=== PATIENT | female | born 1955 | race Caucasian/White ===

== ENCOUNTER 2017-08-14 13:14 | Inpatient (IN) | payer OTHER ==
--- NOTE | 2017-08-14 13:58 | CPEKG ---
Heart Rate: 93 RR Interval: 645 P-R Interval: 164 QRSD Interval: 90 QT Interval: 364 QTC Interval: 453 P Allen: 51 QRS Allen: -11 T Wave Allen: 127 EKG Severity - ABNORMAL ECG - EKG Impression: SINUS RHYTHM EKG Impression: NONSPECIFIC T ABNORMALITIES, ANT-LAT LEADS Electronically Signed By: Jewel Mott 16-Aug-2017 16:46:10
[2017-08-14] MEDS ORDERED: NS 1,000 ML IV ONE (14:04)
[2017-08-14 14:13] LABS: % IMMATURE GRANULYOCYTES 0.5 % (0.0-1.1); ABSOLUTE IMMATURE GRANULOCYTES 0.09 10^3/uL (0.00-0.10); ADD DIFF? NO; ADD MORPH? NO; ADD SCAN? NO; ATYPICAL LYMPHOCYTE FLAG 0 (0-99); FRAGMENT RBC FLAG 0 (0-99); HEMATOCRIT 38.2 % (38.0-47.0); HEMOGLOBIN 13.1 g/dL (12.6-16.3); LEFT SHIFT FLG 0 (0-99); LIPEMIA HEMOLYSIS FLAG 90 (0-99); MEAN CELL HEMOGLOBIN 32.2 pg (27.9-34.1); MEAN CELL HEMOGLOBIN CONCENTR. 34.3 g/dL (32.4-36.7); MEAN CELL VOLUME 93.9 fL (81.5-99.8); MEAN PLATELET VOLUME 11.6 fL (8.7-11.7); PLATELET CLUMPS FLAG 0 (0-99); PLATELET COUNT 332 10^3/uL (150-400); RED BLOOD CELL COUNT 4.07 10^6/uL (4.18-5.33); RED CELL DISTRIBUTION WIDTH 13.3 % (11.5-15.2)
[2017-08-14 14:16] LABS: ANION GAP 15 mEq/L (8-16); CALCIUM 10.3 mg/dL (8.5-10.4); CARBON DIOXIDE 28 mEq/l (22-31); CHLORIDE 100 mEq/L (97-110); CREATININE 1.6 mg/dL (0.6-1.0); GLOMERULAR FILTRATION RATE 33; GLUCOSE 271 mg/dL (70-100); POTASSIUM 4.3 mEq/L (3.5-5.2); SODIUM 143 mEq/L (134-144)
[2017-08-14 14:27] LABS: TROPONIN I < 0.012 ng/mL (0.000-0.034)
--- NOTE | 2017-08-14 14:48 | EDPHY ---
HPI/HX/ROS/PE/MDM Narrative: CHIEF COMPLAINT: Fall, lethargy, dizziness HPI: This patient is a 61 year old female with history of diabetes arriving with her and daughter following a fall this morning. She has had chronic dizziness following heavy antibiotic treatment for a resistant e-coli urinary tract infection in February. She has had knee surgeries recently as well and has difficulty walking; she usually ambulates with a walked. This morning between 9: 30 and 11:00am, she became dizzy and fell. She was unable to get up following this. Her daughter found her at 11:00 and helped her up. She has been using a scopolamine patch to relieve her dizziness, which her daughter, a surgical center nurse, removed. The patient's daughter and agree that the patient has seemed fatigued and confused for the past several days. These symptoms are consistent with her prior urinary tract infections. The patient denies any recent medication changes other than the addition of scopolamine patch. She denies fever, dysuria, chest pain, shortness of breath, abdominal pain, or other associated symptoms. REVIEW OF SYSTEMS: Aside from elements discussed in the HPI, a comprehensive 10-point review of systems was reviewed and is negative. PMH: Diabetes. Hyperlipidemia. SOCIAL HISTORY: Lives in [place]. . Family at bedside. PHYSICAL EXAM: General:Patient appears lethargic, falls asleep during exam. In no acute distress. ENT:Eyes are normal to inspection. ENT inspection normal. Neck: Normal inspection. Full range of motion. Respiratory:No respiratory distress. Breath sounds normal bilaterally. Cardiovascular: Regular rate and rhythm. Strong peripheral pulses. Normal cap refill. Abdomen:The abdomen is nontender to palpation. There are no peritoneal signs. There are normal bowel sounds. Back: Normal to inspection. No tenderness to palpation. Skin: Normal color. No rash. Warm and dry. Extremities: Normal appearance. Full range of motion. Neuro: Oriented x3. Normal motor function. Normal sensory function. ED Course: 61 year old female with history of diabetes presents following a fall due to possible syncopal or near-syncopal episode this morning. The patient is quite lethargic and appears to be falling asleep during my interview and exam. She complains of knee pain as well, and has had several procedures. IV established. Plan for labs including CBC, BMP, Troponin, UA, flu swab. Plan for x-ray of chest and knee. Knee x-ray shows soft tissue swelling, no acute fracture. Chest x-ray shows evidence of interstitial pneumonia, greatest in the right lower lobe. 17:00 Reassessed. Plan to admit for pneumonia. 17:[address] Christopher, hospitalist. She will review the patient's antibiotic sensitivities. MDM: This patient presents with weakness and fall. She denies infectious symptoms, but appears quite lethargic on my exam, which daughter states is similar to prior times when she has had a UTI. UA is relatively negative here, but CXR indicates infiltrate. I see no evidence of septic shock, but given weakness resulting in fall, as well as history of MDR organism, I think the patient requires admission to the hospital for further workup and treatment. - Data Points Imaging Results: Imaging Impressions Knee X-Ray 08/14/17 14:04 Impression: Soft tissue swelling. No fracture. If there is concern for distal quadriceps/patellar tendon rupture, then recommend MRI or possibly ultrasound. Chest X-Ray 08/14/17 16:02 Impression: Interstitial pneumonia, greatest in the right lower lobe. Does this patient have an acute viral illness or known chronic interstitial lung disease? Laboratory Results: Laboratory Results 08/14/17 13:40 08/14/17 13:40 08/14/17 08/14/17 08/14/17 16:30 15:00 13:40 WBC RBC Hgb Hct MCV MCH MCHC RDW Plt Count MPV Neut % (Auto) Lymph % (Auto) [place] % (Auto) Eos % (Auto) Baso % (Auto) Nucleat RBC Rel Count Absolute Neuts (auto) Absolute Lymphs (auto) Absolute Monos (auto) Absolute Eos (auto) Absolute Basos (auto) Absolute Nucleated RBC Immature Gran % Immature Gran # Sodium 143 mEq/L mEq/L (134-144) Potassium 4.3 mEq/L mEq/L (3.5-5.2) Chloride 100 mEq/L mEq/L (97-110) Carbon Dioxide 28 mEq/l mEq/l (22-31) Anion Gap 15 mEq/L mEq/L (8-16) BUN 24 mg/dL H mg/dL (7-23) Creatinine 1.6 mg/dL H mg/dL (0.6-1.0) Estimated GFR 33 Glucose 271 mg/dL H mg/dL (70-100) Calcium 10.3 mg/dL mg/dL (8.5-10.4) Troponin I < 0.012 ng/mL ng/mL (0.000-0.034) Urine Color YELLOW Urine Appearance HAZY Urine pH 5.0 (5.0-7.5) Ur Specific [place] 1.018 (1.002-1.030) Urine Protein 2+ H (NEGATIVE) Urine Ketones NEGATIVE (NEGATIVE) Urine Blood 1+ H (NEGATIVE) Urine Nitrate NEGATIVE (NEGATIVE) Urine Bilirubin NEGATIVE (NEGATIVE) Urine Urobilinogen NEGATIVE EU EU (0.2-1.0) Ur Leukocyte Esterase NEGATIVE (NEGATIVE) Urine RBC 10-15 /hpf H /hpf (0-3) Urine WBC 1-3 /hpf /hpf (0-3) Ur Epithelial Cells TRACE /lpf /lpf (NONE-1+) Urine Bacteria TRACE /hpf H /hpf (NONE SEEN) Hyaline Casts 1-5 /lpf /lpf (0-1) Urine Mucus TRACE /lpf /lpf (NONE-1+) Urine Glucose 3+ H (NEGATIVE) Nasal Influenza A PCR NEGATIVE FOR FLU A (NEGATIVE) Nasal Influenza B PCR NEGATIVE FOR FLU B (NEGATIVE) 08/14/17 13:40 WBC 16.39 10^3/uL H 10^3/uL (3.80-9.50) RBC 4.07 10^6/uL L 10^6/uL (4.18-5.33) Hgb 13.1 g/dL g/dL (12.6-16.3) Hct 38.2 % % (38.0-47.0) MCV 93.9 fL fL (81.5-99.8) MCH 32.2 pg pg (27.9-34.1) MCHC 34.3 g/dL g/dL (32.4-36.7) RDW 13.3 % % (11.5-15.2) Plt Count 332 10^3/uL 10^3/uL (150-400) MPV 11.6 fL fL (8.7-11.7) Neut % (Auto) 85.5 % H % (39.3-74.2) Lymph % (Auto) 8.6 % L % (15.0-45.0) [place] % (Auto) 4.6 % % (4.5-13.0) Eos % (Auto) 0.5 % L % (0.6-7.6) Baso % (Auto) 0.3 % % (0.3-1.7) Nucleat RBC Rel Count 0.0 % % (0.0-0.2) Absolute Neuts (auto) 14.00 10^3/uL H 10^3/uL (1.70-6.50) Absolute Lymphs (auto) 1.41 10^3/uL 10^3/uL (1.00-3.00) Absolute Monos (auto) 0.76 10^3/uL 10^3/uL (0.30-0.80) Absolute Eos (auto) 0.08 10^3/uL 10^3/uL (0.03-0.40) Absolute Basos (auto) 0.05 10^3/uL 10^3/uL (0.02-0.10) Absolute Nucleated RBC 0.00 10^3/uL 10^3/uL (0-0.01) Immature Gran % 0.5 % % (0.0-1.1) Immature Gran # 0.09 10^3/uL 10^3/uL (0.00-0.10) Sodium Potassium Chloride Carbon Dioxide Anion Gap BUN Creatinine Estimated GFR Glucose Calcium Troponin I Urine Color Urine Appearance Urine pH Ur Specific [place] Urine Protein Urine Ketones Urine Blood Urine Nitrate Urine Bilirubin Urine Urobilinogen Ur Leukocyte Esterase Urine RBC Urine WBC Ur Epithelial Cells Urine Bacteria Hyaline Casts Urine Mucus Urine Glucose Nasal Influenza A PCR Nasal Influenza B PCR Medications Given: Discontinued Medications Sodium Chloride (Ns) 1,000 mls @ 0 mls/hr IV EDNOW ONE; Wide Open PRN Reason: Protocol Stop: 08/14/17 14:05 Last Admin: 08/14/17 14:15 Dose: 1,000 mls General Time Seen by Provider: 08/14/17 14:04 Initial Vital Signs: Initial Vital Signs Temperature (C) 37.7 C 08/14/17 13:33 Heart Rate 96 08/14/17 13:33 Respiratory Rate 16 08/14/17 13:33 Blood Pressure 117/63 08/14/17 13:33 O2 Delivery Mode Nasal Cannula O2 (L/minute) 2 Allergies/Adverse Reactions: ciprofloxacin [From Cipro] Allergy (Verified 08/14/17 13:27) Penicillins Allergy (Verified 08/14/17 18:41) Home Medications: Medication Instructions Recorded Aspirin EC [Aspirin EC 81 mg (*)] 81 mg PO DAILY 08/14/17 Escitalopram Oxalate [Lexapro] 20 mg PO DAILY 08/14/17 Estrogen,Claire/Me-Testosterone 1 each PO DAILY 08/14/17 [Estratest H.s. Tablet] Gabapentin [Neurontin 300 MG (*)] 300 mg PO BID 08/14/17 Insulin Glargine,Hum.rec.anlog 50 unit SQ HS 08/14/17 [Toujeo Solostar] Insulin Lispro [Humalog] 18 - 20 units SC TIDMEAL 08/14/17 Levothyroxine [Synthroid 100 mcg 100 mcg PO DAILY06 08/14/17 (*)] Liraglutide [Victoza 3-Lobito] 0.6 mg SQ DAILY 08/14/17 Multivitamins [Multivitamin (*)] 1 each PO DAILY 08/14/17 Simvastatin [Zocor] 40 mg PO DAILY 08/14/17 oxyCODONE HCL [Oxycontin] 60 mg PO BID 08/14/17 oxyCODONE IR [Oxycodone Ir (*)] 10 mg PO BID PRN 08/14/17 tiZANidine HCL [Zanaflex] 4 mg PO BID 08/14/17 Departure - Departure Disposition: [facility] Inpatient Acute Clinical Impression: Pneumonia Qualifiers: Pneumonia type: due to unspecified organism Laterality: right Lung location: lower lobe of lung Qualified Code(s): J18.1 - Lobar pneumonia, unspecified organism Condition: Fair Report Scribed for: Juan Rushing Report Scribed by: Cecilia Benz Date of Report: 08/14/17 Time of Report: 15:37 Physician Review and Approval Statement: Portions of this note were transcribed by an ED scribe. I personally performed the history, physical exam, and medical decision making; and confirm the accuracy of the information in the transcribed note.
[2017-08-14 15:23] LABS: COLOR YELLOW; LEUKOCYTE ESTERASE,URINE NEGATIVE (NEGATIVE); NITRITE,URINE NEGATIVE (NEGATIVE)
[2017-08-14 15:51] LABS: BACTERIA TRACE /hpf (NONE SEEN); MUCUS TRACE /lpf (NONE-1+)
[2017-08-14] MEDS ORDERED: ONDANSETRON 4 MG/2 ML VIAL IVP PRN (17:21)
[2017-08-14] MEDS ORDERED: ACETAMINOPHEN 325 MG TAB PO PRN (17:21)
[2017-08-14] MEDS ORDERED: ONDANSETRON DISINTEGRATING 4 MG TAB PO PRN (17:21)
[2017-08-14] MEDS ORDERED: D50W 25 GM/50 ML SYR IVP PRN (17:29)
--- NOTE | 2017-08-14 18:36 | GHP ---
[f rep st] HISTORY AND PHYSICAL DATE OF ADMISSION: 08/14/2017 CHIEF COMPLAINT: Fall, lethargy and dizziness. HISTORY OF PRESENT ILLNESS: A 61-year-old female, with history of vertigo, diabetes, chronic recurre nt UTI, arriving with her and daughter after a fall this morning. She was treated for a resi stant E coli urinary infection with prolonged IV antibiotics. She has had knee surgery and uses a wa lker. This morning about 9:30 she became very dizzy and fell. She did not have a loss of consciousn ess. She denied any prodromal chest pain, shortness of breath, or palpitations. She has been using a scopolamine patch to relieve her dizziness. Per her , she has been more fatigued and slightly confused over the last day, has had a nonpro ductive cough. She denies any dysuria. They returned from a cruise in early July in the [facility] in [place], but had no issues while gone. No abdominal pain, chest pain. REVIEW OF SYSTEMS: I completed a 10-point review of systems, negative except as noted in HPI. PAST MEDICAL HISTORY: Vertigo, chronic pain; sees a pain specialist, osteoarthritis, diabetes, depre ssion, hypothyroidism, diabetes type 2, CKD, recurrent UTI; E coli resistant, in February 2017. PAST SURGICAL HISTORY: Right TKA, appendectomy, cholecystectomy, hysterectomy, tonsillectomy, adenoi dectomy, spine surgery x2. FAMILY HISTORY: Mother with cancer. Father with no health issues. SOCIAL HISTORY: Lives with her in [place]. Uses a walker. No tobacco, alcohol or illicits . ALLERGIES: Ciprofloxacin, penicillin. MEDICATIONS: At home: Estrogen, OxyContin 60 mg b.i.d., Lexapro 20 mg daily, aspirin 81 mg daily, g abapentin 300 mg b.i.d., lispro sliding scale, multivitamin, levothyroxine 100 mcg daily, oxycod one IR 10 mg b.i.d. p.r.n., tizanidine 4 mg b.i.d., simvastatin 40 mg daily, Victoza 0.6 mg daily, gl argine 15 units subcu h.s. PHYSICAL EXAMINATION: VITAL SIGNS: Temperature 37.6, blood pressure 122/63, heart rate in the 80s, respirations 14, 95% on room air. GENERAL: Sitting up, appears very fatigued, ill-appearing. HEENT : PERRLA. EOMI. Dry mucous membranes. Oropharynx clear. CV: Regular rate and rhythm. No murmur s, gallops, rubs. +1 pitting edema bilateral legs. LUNGS: Clear. ABDOMEN: Soft, nontender, nondi stended. Positive bowel sounds. : No suprapubic tenderness. MUSCULOSKELETAL: 5/5 upper and low er extremity strength. Surgical incision of her right knee. NEUROLOGIC: 2 through 12 intact. PSYC HIATRIC: Alert and oriented x3. LABORATORY DATA: Influenza negative. Sodium 143, potassium 4.3, chloride 100, anion gap 15, BUN 24, creatinine 1.6 (1.8 per labs at [place] in February), glucose 271, calcium 10.3. Troponin less than 0. 012. WBC 16.9, hemoglobin 13, hematocrit 38, platelets 332. EKG is personally reviewed by me, ST flattening in V3 through V6. Chest x-ray is personally reviewed by me, bilateral interstitial infiltrates, no effusion. Knee x-ray: Right knee soft tissue swelling. No fracture. ASSESSMENT/PLAN: 1. Fall: This is in the setting of dizziness. Suspect secondary underlying acute illness. She den ies any prodromal symptoms and did not have a loss of consciousness. 2. Leukocytosis: Suspect a viral versus bacterial infection. There is bilateral interstitial infil trate on x-ray. Flu is negative. We will add a full PCR. We will treat empirically with ceftriaxon e and azithromycin for community-acquired pneumonia. Check procalcitonin. Urinalysis is negative. 3. Right knee pain: X-ray is showing soft tissue swelling. 4. Chronic pain, resume OxyContin and oxycodone. 5. Depression. Continue home medications. 6. Hypothyroid, continue levothyroxine. 7. Uncontrolled diabetes. Sugar is elevated here. We will continue glargine, Victoza and sliding s miguel insulin. 8. Chronic kidney disease. Per review of outside labs, last creatinine was 1.8. Renally dose medic ations. 9. Deep venous thrombosis prophylaxis. Lovenox. 10. Diet: Diabetic. DISPOSITION: Patient warrants observation admission given fall, leukocytosis, decreased p.o. intake, requiring IV antibiotics, fluids. /[id number]/MODL
[2017-08-14] MEDS: oxyCODONE IR 5 MG TAB PO PRN (18:48)
[2017-08-14] MEDS: Insulin Glargine,Hum.Rec.Anlog [Toujeo Solostar] SQ SCH (20:42)
[2017-08-14] MEDS: INSULIN LISPRO 100 UNIT/ML SC SCH (21:00)
[2017-08-14] MEDS: oxyCODONE CR 30 MG TAB PO SCH (21:13)
[2017-08-14] MEDS: AZITHROMYCIN 250 MG TAB PO SCH (21:13)
[2017-08-14] MEDS: GABAPENTIN 300 MG CAP PO SCH (21:14)
[2017-08-15 04:44] LABS: HEMATOCRIT 30.5 % (38.0-47.0); HEMOGLOBIN 10.5 g/dL (12.6-16.3); MEAN CELL HEMOGLOBIN 32.3 pg (27.9-34.1); MEAN CELL HEMOGLOBIN CONCENTR. 34.4 g/dL (32.4-36.7); MEAN CELL VOLUME 93.8 fL (81.5-99.8); RED BLOOD CELL COUNT 3.25 10^6/uL (4.18-5.33); RED CELL DISTRIBUTION WIDTH 13.2 % (11.5-15.2)
[2017-08-15 04:58] LABS: ANION GAP 10 mEq/L (8-16); CALCIUM 9.3 mg/dL (8.5-10.4); CARBON DIOXIDE 27 mEq/l (22-31); CHLORIDE 106 mEq/L (97-110); CREATININE 1.4 mg/dL (0.6-1.0); GLOMERULAR FILTRATION RATE 38; GLUCOSE 188 mg/dL (70-100); POTASSIUM 4.1 mEq/L (3.5-5.2); SODIUM 143 mEq/L (134-144)
[2017-08-15] MEDS: LEVOTHYROXINE 100 MCG TAB PO SCH (06:42)
[2017-08-15] MEDS ORDERED: PNEUMOCOCCAL 0.5ML VACCINE VIAL IM ONE (07:17)
[2017-08-15] MEDS: ENOXAPARIN 40 MG/0.4 ML SYR SC SCH (07:35)
[2017-08-15] MEDS: GABAPENTIN 300 MG CAP PO SCH ×2 (07:35→20:05)
[2017-08-15] MEDS: ATORVASTATIN CALCIUM 20 MG TAB PO SCH (07:36)
[2017-08-15] MEDS: MULTIVITAMINS 1 EACH TAB PO SCH (07:36)
[2017-08-15] MEDS: AZITHROMYCIN 250 MG TAB PO SCH (07:36)
[2017-08-15] MEDS: ESCITALOPRAM OXALATE 10 MG TAB PO SCH (07:36)
[2017-08-15] MEDS: oxyCODONE IR 5 MG TAB PO PRN (07:36)
[2017-08-15] MEDS: ASPIRIN EC 81 MG TAB PO SCH (07:37)
[2017-08-15] MEDS: INSULIN LISPRO 100 UNIT/ML SC SCH ×3 (08:55→17:25)
[2017-08-15] MEDS: oxyCODONE CR 30 MG TAB PO SCH ×2 (08:55→20:05)
[2017-08-15] MEDS: ESTROGEN ESTER PO SCH (09:43)
[2017-08-15] MEDS: TESTOSTERONE PO SCH (09:43)
[2017-08-15] MEDS: Liraglutide [Victoza 3-Pak] 0.6 MG SQ SCH (09:43)
--- NOTE | 2017-08-15 11:50 | ASMTCMCOM ---
CM Note CM Note Notes: Pt. is a 61-year-old woman admitted w/ PNA, a fall, lethargy and dizziness. Pt. w/ hx. vertigo, diabetes, chronic UTIs, and depression. At baseline, Pt. uses a walker at home. Currently on IV antibiotics. Pt. lives w/ her Jimmie who is supportive per RN. Current plan: TBD. CM to follow for possible IV antibiotics or PASRR assessment if SNF needed due to depression. Date Signed: 08/15/2017 11:50 AM Electronically Signed By:Ekaterina Nieto LCSW
--- NOTE | 2017-08-15 13:31 | HOSPPROG ---
Hospitalist Progress Note Assessment/Plan: 61y female with c/o fatigue and weakness. First encounter, chart reviewed. D/W RN. #Fatigue acute illness #PNA per cxr cont abx therapy #AHRF improving #Fall related to acute illness #Leukocytosis acute infectious process #Anemia stable #CRF at baseline #Chronic pain cont home meds #DM uncontrolled d/w pt #Hx depression stable #Dispo unclear, change to inpt status not well enough to DC home cont supportive care for PNA Subjective: Feeling better then yesterday. Still feeling ill. Weak, unable to DC home. Objective: Vital Signs Temp Pulse Resp BP Pulse Ox 36.4 C 61 16 117/65 97 08/15/17 11:22 08/15/17 11:22 08/15/17 11:22 08/15/17 11:22 08/15/17 11:22 Laboratory Results 08/15/17 04:14 08/15/17 04:14 08/14/17 08/15/17 08/16/17 05:59 05:59 05:59 Intake Total 1000 Balance 1000 - Physical Exam Constitutional: not in pain, chronically ill appearing, obese Eyes: PERRL, anicteric sclera, EOMI Ears, Nose, Mouth, Throat: moist mucous membranes, hearing normal, ears appear normal Cardiovascular: regular rate and rhythym, No JVD, No edema Respiratory: no respiratory distress, no rales or rhonchi, reduced air movement Gastrointestinal: normoactive bowel sounds, No tenderness, No ascites Skin: warm, normal color, No erythema Musculoskeletal: normal joint ROM, no joint effusions, generalized weakness Neurologic: AAOx3 Psychiatric: interacting appropriately, not encephalopathic, thought process linear ICD10 Worksheet Patient Problems: Problems Problem Status Onset Pneumonia Acute
[2017-08-15] MEDS: Insulin Glargine,Hum.Rec.Anlog [Toujeo Solostar] SQ SCH (22:49)
[2017-08-16] MEDS: oxyCODONE IR 5 MG TAB PO PRN (00:08)
[2017-08-16 04:48] LABS: HEMATOCRIT 32.2 % (38.0-47.0); HEMOGLOBIN 10.5 g/dL (12.6-16.3); MEAN CELL HEMOGLOBIN 31.1 pg (27.9-34.1); MEAN CELL HEMOGLOBIN CONCENTR. 32.6 g/dL (32.4-36.7); MEAN CELL VOLUME 95.3 fL (81.5-99.8); RED BLOOD CELL COUNT 3.38 10^6/uL (4.18-5.33); RED CELL DISTRIBUTION WIDTH 13.2 % (11.5-15.2)
[2017-08-16 04:59] LABS: ANION GAP 9 mEq/L (8-16); CALCIUM 9.3 mg/dL (8.5-10.4); CARBON DIOXIDE 29 mEq/l (22-31); CHLORIDE 103 mEq/L (97-110); CREATININE 1.4 mg/dL (0.6-1.0); GLOMERULAR FILTRATION RATE 38; GLUCOSE 268 mg/dL (70-100); POTASSIUM 4.4 mEq/L (3.5-5.2); SODIUM 141 mEq/L (134-144)
[2017-08-16] MEDS: LEVOTHYROXINE 100 MCG TAB PO SCH (05:32)
[2017-08-16 07:13] VITALS: TEMP 97.9
--- NOTE | 2017-08-16 07:58 | PDMN ---
Medical Necessity Medical necessity: Pt meets Inpt criteria per MD/SR. MANAGER MARKETING as of 08/15/17 and MCG M- 282 Pneumonia, Community Acquired (pneumonia with ongoing fatigue, weakness, AHRF, leukocytosis, anemia, DM; hx CRF) per SR. MANAGER MARKETING progress note 08/15/17.
[2017-08-16] MEDS: ESCITALOPRAM OXALATE 10 MG TAB PO SCH (08:14)
[2017-08-16] MEDS: GABAPENTIN 300 MG CAP PO SCH (08:15)
[2017-08-16] MEDS: ENOXAPARIN 40 MG/0.4 ML SYR SC SCH (08:15)
[2017-08-16] MEDS: MULTIVITAMINS 1 EACH TAB PO SCH (08:15)
[2017-08-16] MEDS: INSULIN LISPRO 100 UNIT/ML SC SCH (08:15)
[2017-08-16] MEDS: oxyCODONE CR 30 MG TAB PO SCH (08:16)
[2017-08-16] MEDS: ATORVASTATIN CALCIUM 20 MG TAB PO SCH (08:16)
[2017-08-16] MEDS: ASPIRIN EC 81 MG TAB PO SCH (08:16)
[2017-08-16] MEDS: AZITHROMYCIN 250 MG TAB PO SCH (08:16)
[2017-08-16] MEDS: Liraglutide [Victoza 3-Pak] 0.6 MG SQ SCH (08:25)
[2017-08-16] MEDS: ESTROGEN ESTER PO SCH (08:25)
[2017-08-16] MEDS: TESTOSTERONE PO SCH (08:25)
[2017-08-16 11:13] VITALS: BP 141/65; PULSE 62; RESP 16; O2SAT 95
--- NOTE | 2017-08-16 14:09 | GDS ---
[f rep st] DISCHARGE SUMMARY DISCHARGE DIAGNOSES: 1. Pneumonia. 2. Lethargy. 3. Acute hypoxemic respiratory failure. 4. Fall. 5. Leukocytosis. 6. Chronic renal failure. 7. Chronic pain. 8. Diabetes mellitus. 9. History of depression. PHYSICAL EXAM: GENERAL: The patient is alert. VITAL SIGNS: Afebrile at 36.6, pulse is 62, respira tory rate 16, blood pressure is 141/65. She is saturating 95% on room air. I have seen and evaluate d the patient on the day of discharge. HOSPITAL COURSE: The patient is a 61-year-old female who presented to the hospital after suffering a fall. She was evaluated and diagnosed with: 1. Fall. This was mechanical in nature secondary to weakness and lethargy. She has been cleared by Physical Therapy, as well as Occupational Therapy to be safely discharged home with her walker. 2. Pneumonia. The patient has improved with antibiotic therapy. She will continue Levaquin and vanessa thromycin at the time of disposition. I have provided prescriptions for the patient prior to dischar . 3. Fatigue. This has improved, the patient is close to baseline. 4. Acute hypoxemic respiratory failure. This was secondary to the patient's pneumonia and has resol mariel. 5. Leukocytosis in the setting of acute infectious process. 6. Anemia, this is stable. 7. Chronic renal failure. The patient's renal function is at baseline. 8. Chronic pain. Her medications have been continued. 9. Diabetes mellitus. The patient is an uncontrolled diabetic. I have been educating her regarding closer glucose monitoring. She will follow with her primary care physician for further recommendati ons. 10. Disposition: Patient will be discharged home with her family independently. There are no pendi ng studies. DISCHARGE MEDICATIONS: Again, the patient has been provided a prescription for azithromycin, as well as Levaquin. She will continue these in the outpatient setting. FOLLOWUP: With her primary care physician in the next week. I spent greater than 35 minutes in the care, coordination, and management of patient's disposition. /[id number]/MODL
--- NOTE | 2017-08-16 16:26 | ASDISCHSUM ---
Discharge Information Plan Status:Home with No Needs Medically Cleared to Leave:08/15/2017 Discharge Date:08/16/2017 12:15 PM CM D/C Disposition:Home, Routine, Self-Care ADT D/C Disposition:Home, Routine, Self-Care Projected Discharge Date:08/16/2017 12:15 PM Transportation at D/C:Family Discharge Delay Reason: Follow-Up Date:08/16/2017 12:15 PM Discharge Slot: Final Diagnosis: Placement Information Patient Contact Information Contact Name:MAN Relationship: Address:[id number] [place] [address] City:[place] Alternate Phone: [facility]/Zip Code:[place] [address] Email: Financial Information Financial Class:HMO and PPO Plans Primary Plan Desc:WENDY HERNANDEZ PPO Primary Plan Number:[id number] Secondary Plan Desc: Secondary Plan Number: Assessment Information [facility] CM Progress Note CM Note CM Note Notes: Pt. is a 61-year-old woman admitted w/ PNA, a fall, lethargy and dizziness. Pt. w/ hx. vertigo, diabetes, chronic UTIs, and depression. At baseline, Pt. uses a walker at home. Currently on IV antibiotics. Pt. lives w/ her Jimmie who is supportive per RN. Current plan: TBD. CM to follow for possible IV antibiotics or PASRR assessment if SNF needed due to depression. Date Signed: 08/15/2017 11:50 AM Electronically Signed By:Ekaterina Nieto LCSW Intervention Information
== END 2017-08-16 12:15 | disposition home or self-care (01) | DRG 193 ==
LOC: EDUNIT# → F3E 18:16
PROVIDERS: ADMIT Internal Medicine; ATTEND Internal Medicine
DX: J18.9 Pneumonia, unspecified organism (principal); J96.01 Acute respiratory failure with hypoxia; N18.9 Chronic kidney disease, unspecified; G89.29 Other chronic pain; E11.65 Type 2 diabetes mellitus with hyperglycemia; M25.561 Pain in right knee; E03.9 Hypothyroidism, unspecified; W19.XXXA Unspecified fall, initial encounter; Z23 Encounter for immunization; Z87.440 Personal history of urinary (tract) infections
CPT/HCPCS: 97161-GP; G0009; G0378; J0696; J1650; J1815

== ENCOUNTER 2017-09-08 14:27 | Inpatient (IN) | payer OTHER ==
--- NOTE | 2017-09-08 15:00 | CPEKG ---
Heart Rate: 85 RR Interval: 706 P-R Interval: 148 QRSD Interval: 92 QT Interval: 368 QTC Interval: 438 P Brilliant: 45 QRS Brilliant: -7 T Wave Brilliant: 132 EKG Severity - ABNORMAL ECG - EKG Impression: SINUS RHYTHM EKG Impression: NONSPECIFIC T ABNORMALITIES, LATERAL LEADS Electronically Signed By: Leandra Chaudhry 08-Sep-2017 23:23:29
[2017-09-08] MEDS ORDERED: NS 1,000 ML IV ONE ×2 (15:07→16:36)
--- NOTE | 2017-09-08 15:07 | EDPHY ---
H & P Time Seen by Provider: 09/08/17 15:03 HPI/ROS: CHIEF COMPLAINT: Confusion, high blood sugar HISTORY OF PRESENT ILLNESS: The patient is a 61 y/o female with a history of diabetes complaining of confusion and high blood sugar since this last night. She was admitted for pneumonia 08/14/17. She was discharged with Levaquin and Azithromycin. However, she did not take the Levaquin since she experienced vertigo with this antibiotic. On , 3 days ago, she had several episodes of vomiting, but has not experienced this since. She also developed vertigo 3 days ago. Last night she became abnormally drowsy and had difficulty staying awake. Due to her drowsiness, she has had difficulty walking with her walker. The drowsiness and weakness are similar to her prior UTI's and pneumonia. She drank a small glass of water this morning but has not eaten anything. Took 22 units of Humolog at 11 :15, 4 hours ago. Is also taking pain medication for her knee, but has not been taking as much as usual. Did receive a flu vaccination this year. Denies cough, recent cold, abdominal pain, urinary complaints REVIEW OF SYSTEMS: Aside from elements discussed in the HPI, a comprehensive 10-point review of systems was reviewed and is negative. Past Medical/Surgical History: DM Pneumonia Social History: Family at bedside, Smoking Status: Former smoker Physical Exam: General Appearance: Drowsy, pleasant Eyes: Pupils equal and round, no conjunctival pallor or injection ENT, Mouth: Mucous membranes moist Neck: Normal inspection Respiratory: Lungs are clear to auscultation Cardiovascular: Regular rate and rhythm Gastrointestinal: Abdomen is soft and non-tender Neurological: Drowsy, oriented x 3, motor 5/5, sensory grossly intact, CN II- XII intact Skin: Warm and dry, no rash Extremities: Nontender, no pedal edema Psychiatric: Mood and affect flat Constitutional: Initial Vital Signs Temperature (C) 37.7 C 09/08/17 14:47 Heart Rate 94 09/08/17 14:47 Respiratory Rate 18 09/08/17 14:47 Blood Pressure 122/71 H 09/08/17 14:47 O2 Sat (%) 95 09/08/17 14:47 O2 Delivery Mode Room Air Allergies/Adverse Reactions: ciprofloxacin [From Cipro] Allergy (Verified 09/08/17 14:46) Penicillins Allergy (Verified 09/08/17 14:46) Home Medications: Medication Instructions Recorded Aspirin EC [Aspirin EC 81 mg (*)] 81 mg PO DAILY 08/14/17 Escitalopram Oxalate [Lexapro] 20 mg PO DAILY 08/14/17 Estrogen,Claire/Me-Testosterone 1 each PO DAILY 08/14/17 [Estratest H.s. Tablet] Gabapentin [Neurontin 300 MG (*)] 300 mg PO BID 08/14/17 Insulin Glargine,Hum.rec.anlog 50 unit SQ HS 08/14/17 [Toujeo Solostar] Insulin Lispro [Humalog] 18 - 22 units SC TIDMEAL 08/14/17 Levothyroxine [Synthroid 100 mcg 100 mcg PO DAILY06 08/14/17 (*)] Liraglutide [Victoza 3-Lobito] 1.8 mg SQ DAILY 08/14/17 Multivitamins [Multivitamin (*)] 1 each PO DAILY 08/14/17 Simvastatin [Zocor] 40 mg PO DAILY 08/14/17 oxyCODONE HCL [Oxycontin] 60 mg PO BID 08/14/17 Acetaminophen [Tylenol 325mg (*)] 650 mg PO Q4HRS PRN tab 08/16/17 Ondansetron Odt [Zofran Odt 4 mg 4 mg PO Q4 PRN 09/08/17 (*)] oxyCODONE IR [Oxycodone Ir (*)] 30 mg PO TID 09/08/17 Medical Decision Making - Diagnostics EKG Interpretation: EKG interpreted by me reveals normal sinus rhythm with a rate of 85, normal axis , normal intervals, ST and T segments normal. Interpretation: normal EKG Imaging Results: CXR: NAD Imaging: I viewed and interpreted images myself ED Course/Re-evaluation: The patient is a 61 y/o female with a history of diabetes presenting with drowsiness since last night. Her family notes she has been more confused than normal, but on my exam she was oriented x 3. Due to her prior complex infections with similar symptoms and current drowsiness, concern for recurrent infection. No prior h/o overdose, taking her pain medications as prescribed. Plan on UA, blood cultures, EKG, and chest x-ray. Clinically appears dehydrated , 1L IV NS administered. 1459: EKG interpreted by me reveals normal sinus rhythm with a rate of 85 1550: Patient's x-ray reviewed by me does not reveal pneumonia. 1600: Per radiologist, patient's x-ray reveals either chronic diffuse interstitial lung disease versus remnant interstitial pneumonia from the patient 's recent pneumonia. 1615: Patient has a possible UTI, with 3-5 WBC on catheterized sample; urine cx sent. 1gm IV Rocephin administered. Unclear if sx secondary to UTI vs alternative etiology. Serial exams unchanged in ED. No evidence of CVA. Neuroimaging not indicated. Will need to be admitted b/c of AMS, generalized weakness and inability to walk. 1623: Consulted with hospitalist service, Dr. Ny accepts admission of this patient. Differential Diagnosis: includes though not limited to UTI, pneumonia, hypoglycemia, sedative medications, CVA - Data Points Laboratory Results: Laboratory Results 09/08/17 15:23 09/08/17 15:23 Microbiology Results: MICROBIOLOGY 09/08/17 09:35 Nasal, Sinus - Swab Respiratory Panel (PCR) - Final No Organism Detected Medications Given: Aspirin Buffered (Aspirin Ec) 81 mg PO DAILY [facility] Stop: 03/08/18 08:59 Last Admin: 09/09/17 09:16 Dose: 81 mg Atorvastatin Calcium (Lipitor) 20 mg PO DAILY [facility]ON[facility] Stop: 03/08/18 08:59 Last Admin: 09/09/17 09:16 Dose: 20 mg Escitalopram Oxalate (Lexapro) 20 mg PO DAILY [facility] Stop: 03/08/18 08:59 Last Admin: 09/09/17 09:16 Dose: 20 mg Gabapentin (Neurontin) 300 mg PO BID [facility] Stop: 03/07/18 20:59 Last Admin: 09/09/17 09:16 Dose: 300 mg Heparin Sodium (Porcine) (Heparin Sc Injection) 5,000 unit SC Q8 [facility] Stop: 03/07/18 21:59 Last Admin: 09/09/17 15:12 Dose: Not Given Ceftriaxone Sodium/Dextrose (Rocephin 1 Gm (Premix)) 50 mls @ 100 mls/hr IV DAILY [facility] PRN Reason: Protocol Stop: 10/09/17 08:59 Last Admin: 09/09/17 09:16 Dose: 50 mls Levothyroxine Sodium (Synthroid) 100 mcg PO DAILY06 [facility] Stop: 03/08/18 05:59 Last Admin: 09/09/17 04:55 Dose: 100 mcg Miscellaneous Medication (Insulin Glargine,Hum.Rec.Anlog [Brenna Mcguire]) 40 unit SQ HS [facility] Stop: 03/07/18 20:59 Last Admin: 09/08/17 21:28 Dose: 40 units Multivitamins (Tab-A-Hayden) 1 each PO DAILY [facility] Stop: 03/08/18 08:59 Last Admin: 09/09/17 09:16 Dose: 1 each Oxycodone HCl (Oxycodone Ir) 10 mg PO Q4HRS PRN PRN Reason: Pain, Severe Able to Take PO Stop: 09/18/17 18:05 Last Admin: 09/09/17 09:34 Dose: 10 mg Discontinued Medications Sodium Chloride (Ns) 1,000 mls @ 0 mls/hr IV ONCE ONE; Wide Open PRN Reason: Protocol Stop: 09/08/17 15:08 Last Admin: 09/08/17 15:22 Dose: 1,000 mls Ceftriaxone Sodium/Dextrose (Rocephin 1 Gm (Premix)) 50 mls @ 100 mls/hr IV EDNOW ONE PRN Reason: Protocol Stop: 09/08/17 16:47 Last Admin: 09/08/17 16:23 Dose: 50 mls Sodium Chloride (Ns) 1,000 mls @ 3,000 mls/hr IV ONCE ONE Stop: 09/08/17 16:55 Last Admin: 09/08/17 17:54 Dose: 1,000 mls Insulin Human Lispro (Humalog Lispro) 0 unit SC TIDMEAL [facility]ONI PRN Reason: Protocol Stop: 03/07/18 17:59 Last Admin: 09/09/17 15:09 Dose: 6 unit Miscellaneous Medication (Estrogen,Claire/Me-Testosterone [Estratest H.S. Tablet] ) 1 each PO DAILY [facility] Stop: 03/08/18 08:59 Last Admin: 09/09/17 12:44 Dose: Not Given Miscellaneous Medication (Liraglutide [Victoza 3-Lobito]) 0.6 mg SQ DAILY [facility] Stop: 03/08/18 08:59 Last Admin: 09/09/17 11:14 Dose: 0.6 mg Departure - Departure Disposition: [facility] Acute Clinical Impression: UTI (urinary tract infection) Qualifiers: Urinary tract infection type: site unspecified Hematuria presence: with hematuria Qualified Code(s): N39.0 - Urinary tract infection, site not specified ; R31.9 - Hematuria, unspecified; R31.9 - Hematuria, unspecified Altered mental status Qualifiers: Altered mental status type: somnolence Qualified Code(s): R40.0 - Somnolence Condition: Fair Report Scribed for: Leandra Chaudhry Report Scribed by: Josseline Moeller Date of Report: 09/08/17 Time of Report: 15:07 Physician Review and Approval Statement: 09/08/17 15:07 Portions of this note were transcribed by a medical data entry clerk. I personally performed a history, physical exam, medical decision making, and confirmed accuracy of information the transcribed note.
[2017-09-08 15:40] LABS: % IMMATURE GRANULYOCYTES 0.5 % (0.0-1.1); ABSOLUTE IMMATURE GRANULOCYTES 0.08 10^3/uL (0.00-0.10); ADD DIFF? NO; ADD MORPH? NO; ADD SCAN? NO; ATYPICAL LYMPHOCYTE FLAG 0 (0-99); FRAGMENT RBC FLAG 0 (0-99); HEMATOCRIT 37.8 % (38.0-47.0); HEMOGLOBIN 13.3 g/dL (12.6-16.3); LEFT SHIFT FLG 10 (0-99); LIPEMIA HEMOLYSIS FLAG 90 (0-99); MEAN CELL HEMOGLOBIN 32.4 pg (27.9-34.1); MEAN CELL HEMOGLOBIN CONCENTR. 35.2 g/dL (32.4-36.7); MEAN CELL VOLUME 92.2 fL (81.5-99.8); MEAN PLATELET VOLUME 11.1 fL (8.7-11.7); PLATELET CLUMPS FLAG 10 (0-99); PLATELET COUNT 313 10^3/uL (150-400); RED CELL DISTRIBUTION WIDTH 13.3 % (11.5-15.2)
[2017-09-08 15:48] LABS: COLOR YELLOW; LEUKOCYTE ESTERASE,URINE NEGATIVE (NEGATIVE); NITRITE,URINE NEGATIVE (NEGATIVE)
[2017-09-08 15:49] LABS: INR 1.01 (0.83-1.16); PROTIME(PATIENT) 13.5 SEC (12.0-15.0)
[2017-09-08 15:50] LABS: APTT 28.1 SEC (23.0-38.0)
[2017-09-08 15:51] LABS: ANION GAP 13 mEq/L (8-16); BILIRUBIN,TOTAL 0.2 mg/dL (0.1-1.4); CALCIUM 10.5 mg/dL (8.5-10.4); CARBON DIOXIDE 27 mEq/l (22-31); CHLORIDE 100 mEq/L (97-110); GLOMERULAR FILTRATION RATE 25; GLUCOSE 238 mg/dL (70-100); POTASSIUM 4.4 mEq/L (3.5-5.2); SODIUM 140 mEq/L (134-144)
[2017-09-08 16:02] LABS: AMORPHOUS PRESENT /hpf (NONE-1+); MUCUS 1+ /lpf (NONE-1+)
[2017-09-08] MEDS ORDERED: ONDANSETRON 4 MG/2 ML VIAL IVP PRN (16:23)
[2017-09-08] MEDS ORDERED: ACETAMINOPHEN 325 MG TAB PO PRN (16:23)
[2017-09-08] MEDS ORDERED: ONDANSETRON DISINTEGRATING 4 MG TAB PO PRN (16:23)
[2017-09-08] MEDS ORDERED: D50W 25 GM/50 ML SYR IVP PRN (16:37)
[2017-09-08] MEDS: INSULIN LISPRO 100 UNIT/ML SC SCH (17:53)
[2017-09-08] MEDS ORDERED: NS 1,000 ML IV SCH (18:15)
[2017-09-08 19:15] LABS: PHENCYCLIDINE URINE BCH < 6 ng/ml (NEGATIVE); PHENCYCLIDINE URINE BCH NEGATIVE (NEGATIVE); TETRAHYDROCANNABINOL URINE < 5 ng/mL (NEGATIVE); TETRAHYDROCANNABINOL URINE NEGATIVE (NEGATIVE)
--- NOTE | 2017-09-08 19:41 | GHP ---
[f rep st] HISTORY AND PHYSICAL DATE OF ADMISSION: 09/08/2017 CHIEF COMPLAINT: Confusion. HISTORY OF PRESENT ILLNESS: A 61-year-old female, with multiple medical comorbidities, who had a hos pitalization at the end of July 2017, with admitting complaint of confusion. She was found to novoa ve an underlying pneumonia. The patient discharged home and did not complete a full course of antibi otics secondary to concerns related to side effects. The patient did take a Z-Lobito, but not the levof loxacin prescribed, as she was concerned it was causing vertigo. The patient reports having a period in between the hospitalization and now where she was feeling okay, then over the course of the last 3 days, has had increasing anorexia, lethargy, and ultimately confusion that started 24 hours prior t o presentation. The patient was brought in by family for workup. She denies any subjective fevers or chills. Denies any shortness of breath. Denies cough. Denies p leuritic chest pain. Denies abdominal discomfort, nausea or vomiting. Denies diarrhea. Reports yong t she stools every 3rd day. Denies any blood in her stools. The patient takes her own medications a nd reports that she has been compliant with them. Denies any dysuria or hematuria. PAST MEDICAL HISTORY: 1. Chronic pain with continuous narcotic dependency, has a pain specialist. 2. Osteoarthritis. 3. Diabetes. 4. Depression. 5. Hypothyroidism. 6. Type 2 diabetes. 7. CKD, baseline creatinine about 1.3. 8. Chronic vertigo. 9. Recurrent urinary tract infections. SOCIAL HISTORY: Patient lives with her . Uses a walker. Denies tobacco, alcohol, or illicit drugs. ADVANCED DIRECTIVES: She is full cor, full tube. She would want her and daughter to be her medical decision makers. FAMILY HISTORY: Positive for cancer in her mother. REVIEW OF SYSTEMS: A 10-point review of systems is negative with the exception of that reported in t he HPI. PHYSICAL EXAMINATION: VITAL SIGNS: Blood pressure is 134/76, heart rate 79, respiratory rate 16, 98 % on room air, 37.3. GENERAL: This is a lethargic-appearing, middle-aged female, in no acute distre ss. HEENT: Notable for dry mucous membranes. Eyes: Negative for any icterus. CARDIAC: Patient h as regular rate and rhythm. A quiet systolic murmur is appreciated. PULMONARY: She has limited res piratory effort, but is clear to auscultation bilaterally. GASTROINTESTINAL: Obese abdomen. Soft a nd nontender in all 4 quadrants. MUSCULOSKELETAL: Negative for any lower extremity edema. She does have well-healed scars on her right knee. SKIN: Negative for any rashes. NEUROLOGIC: Patient roosevelt ears very somnolent, but is answering questions. Simply seems to be nearly falling asleep in between , having a difficult time keeping her eyes open, but when she is aroused, is oriented and answering a ppropriately. PSYCHIATRIC: She has a flat affect on my exam. DATA: Chest x-ray, which I personally reviewed and interpreted, shows large infiltrates. Radiology comments on chronic diffuse interstitial changes. EKG, which I personally reviewed and interpreted, shows sinus rhythm, normal axis, normal intervals, with no acute ST-T changes. LABORATORY: White count is elevated at 17, hematocrit 37.8 which appears baseline, platelets of 313. Creatinine is 2.0, up from her baseline 1.2-1.3. Blood glucose is in the 200s. Sodium is 138, pot assium 4.1. Urinalysis has 3-5 white blood cells, 5-10 red. ASSESSMENT AND PLAN: This is a 61-year-old female, presenting with confusion. 1. Acute encephalopathy. Differential would include medications, as the patient takes chronic opiat es and has recently been started on benzodiazepines by her primary care. It is possible the combinat ion of the 2 have been too profound for this patient, or exacerbated in the setting of acute kidney i njury. We will hold the long-acting narcotics at this time, place a p.r.n. order for short-acting ox y and hold on benzodiazepines. We will follow the patient's level of alertness and orientation with these changes. Additionally, sending a thorough workup for underlying infection. Possible the patie nt has either a bloodstream infection from incomplete treatment of previous pneumonia, or another occ ult infection. I have sent blood cultures, urine cultures, and ordered a respiratory panel PCR. The patient received 1 dose of ceftriaxone in the emergency department. I am inclined to continue this until we have negative cultures, in case there is an occult blood stream infection. We will addition ally treat her acute kidney injury. 2. Acute kidney injury, suspect secondary to hypovolemia. We will fluid resuscitate and follow in t he morning. 3. Diabetes. Patient appears to have poorly controlled diabetes with chronic elevations of her bloo d glucose in the 200 to 300s in our system. We will send a hemoglobin A1c, cover with sliding scale insulin, and continue her home long-acting insulin. I am reducing the dose this evening, as she is q uite somnolent, and I think not eating normally. Can be up titrated once her p.o. intake is back to normal. 4. Chronic pain with continuous narcotic dependency. As outlined above, I am holding the long-actin g narcotics and benzodiazepines on admission. We will place a p.r.n. short-acting oxy order to cover any pain the patient experiences overnight. I am hopeful that holding these doses will assist in cl earing the patient's encephalopathy. 5. Hypothyroidism. We will send a TSH. 6. Prophylaxis with heparin subcutaneously secondary to the acute kidney injury. DIET: Diabetic. DISPOSITION: I am expecting greater than 2 midnights as the patient is acutely ill with encephalopat hy requiring monitoring and medication titration. I have discussed the case with the emergency room physician. Patient will be triaged to the medical- surgical floor for care. /[id number]/MODL
[2017-09-08] MEDS ORDERED: INSULIN GLARGINE HUM REC ANLOG 40 UNIT SQ SCH (21:00)
[2017-09-08] MEDS: HEPARIN 5,000 UNIT/0.5 ML SYR SC SCH (21:31)
[2017-09-08] MEDS: GABAPENTIN 300 MG CAP PO SCH (21:32)
[2017-09-08] MEDS: oxyCODONE IR 5 MG TAB PO PRN (23:28)
[2017-09-09 02:29] LABS: HEMOGLOBIN A1C 9.9 % (4.0-6.0)
[2017-09-09] MEDS: oxyCODONE IR 5 MG TAB PO PRN ×2 (04:55→09:34)
[2017-09-09] MEDS: HEPARIN 5,000 UNIT/0.5 ML SYR SC SCH ×2 (04:56→15:12)
[2017-09-09 05:07] LABS: % IMMATURE GRANULYOCYTES 0.3 % (0.0-1.1); ABSOLUTE IMMATURE GRANULOCYTES 0.04 10^3/uL (0.00-0.10); ADD DIFF? NO; ADD MORPH? NO; ADD SCAN? NO; ATYPICAL LYMPHOCYTE FLAG 0 (0-99); FRAGMENT RBC FLAG 0 (0-99); HEMATOCRIT 33.7 % (38.0-47.0); HEMOGLOBIN 11.7 g/dL (12.6-16.3); LEFT SHIFT FLG 0 (0-99); LIPEMIA HEMOLYSIS FLAG 90 (0-99); MEAN CELL HEMOGLOBIN 32.2 pg (27.9-34.1); MEAN CELL HEMOGLOBIN CONCENTR. 34.7 g/dL (32.4-36.7); MEAN CELL VOLUME 92.8 fL (81.5-99.8); MEAN PLATELET VOLUME 11.1 fL (8.7-11.7); PLATELET CLUMPS FLAG 0 (0-99); PLATELET COUNT 241 10^3/uL (150-400); RED BLOOD CELL COUNT 3.63 10^6/uL (4.18-5.33); RED CELL DISTRIBUTION WIDTH 13.3 % (11.5-15.2)
[2017-09-09 05:20] LABS: ANION GAP 10 mEq/L (8-16); CALCIUM 9.2 mg/dL (8.5-10.4); CARBON DIOXIDE 26 mEq/l (22-31); CHLORIDE 107 mEq/L (97-110); CREATININE 1.5 mg/dL (0.6-1.0); GLOMERULAR FILTRATION RATE 35; GLUCOSE 182 mg/dL (70-100); SODIUM 143 mEq/L (134-144)
[2017-09-09] MEDS ORDERED: LEVOTHYROXINE 100 MCG TAB PO SCH (06:00)
[2017-09-09] MEDS: INSULIN LISPRO 100 UNIT/ML SC SCH ×2 (08:59→15:09)
[2017-09-09] MEDS ORDERED: Liraglutide [Victoza 3-Pak] 0.6 MG SQ SCH (09:00)
[2017-09-09] MEDS ORDERED: ESCITALOPRAM OXALATE 10 MG TAB PO SCH (09:00)
[2017-09-09] MEDS ORDERED: ESTROGEN ESTER PO SCH (09:00)
[2017-09-09] MEDS ORDERED: ASPIRIN EC 81 MG TAB PO SCH (09:00)
[2017-09-09] MEDS ORDERED: TESTOSTERONE PO SCH (09:00)
[2017-09-09] MEDS ORDERED: MULTIVITAMINS 1 EACH TAB PO SCH (09:00)
[2017-09-09] MEDS ORDERED: ATORVASTATIN CALCIUM 20 MG TAB PO SCH (09:00)
[2017-09-09] MEDS: GABAPENTIN 300 MG CAP PO SCH (09:16)
--- NOTE | 2017-09-09 11:08 | PDMN ---
Medical Necessity Medical necessity: Patient meets INPT criteria per physician note and [facility] [place] [facility] (acute persistent encephalopathy: increasing anorexia, lethargy, confusion; hx of recent hospitalization for confusion/pneumonia (took Z-rocío but not prescribed levofloxacin d/t c/o vertigo); mult medical comorbidities; anticipated LOS > 2 midnights for IV antibiotics and med titration w/close monitoring.)
[2017-09-09 11:55] VITALS: BP 164/81; PULSE 70; RESP 12; TEMP 98.2; O2SAT 94
[2017-09-09] MEDS ORDERED: D50W 25 GM/50 ML SYR IVP PRN (13:47)
--- NOTE | 2017-09-09 14:27 | HOSPPROG ---
Hospitalist Progress Note Assessment/Plan: 61 yo F w polypharmacy admitted w encephalopathy felt 2/2 medications has cleared w holdiing of long acting meds high serum levels of benzos and opiates noted cleared by pt/ot home today see dc summary Subjective: alert. infectious workup negative Objective: Vital Signs Temp Pulse Resp BP Pulse Ox 36.8 C 70 12 164/81 H 94 09/09/17 11:52 09/09/17 11:52 09/09/17 11:52 09/09/17 11:52 09/09/17 11:52 Laboratory Results 09/09/17 04:53 09/09/17 04:53 09/08/17 09/09/17 09/10/17 05:59 05:59 05:59 Intake Total 2100 Output Total 400 Balance 1700 PT 13.5 SEC (12.0-15.0) 09/08/17 15:23 INR 1.01 (0.83-1.16) 09/08/17 15:23 - Physical Exam Constitutional: no apparent distress, appears nourished Eyes: PERRL, anicteric sclera Ears, Nose, Mouth, Throat: moist mucous membranes, hearing normal Cardiovascular: regular rate and rhythym, no murmur, rub, or gallop Respiratory: no respiratory distress, no rales or rhonchi Gastrointestinal: normoactive bowel sounds, soft, non-tender abdomen Genitourinary: no bladder fullness, No pitt in urethra Skin: warm, normal color Musculoskeletal: full muscle strength, no muscle tenderness Neurologic: AAOx3 ICD10 Worksheet Patient Problems: Problems Problem Status Onset UTI (urinary tract infection) Acute Pneumonia Acute
--- NOTE | 2017-09-09 14:54 | GDS ---
[f rep st] DISCHARGE SUMMARY DISCHARGE DIAGNOSES: 1. Encephalopathy, felt secondary to medications. 2. Recent pneumonia. 3. Chronic pain with continuous narcotic dependency, with a pain specialist. 4. Recent prescription for Valium. 5. Hyperlipidemia. 6. Diabetes with a hemoglobin A1c of 9.9, equals poorly-controlled diabetes. 7. Depression. 8. Hypothyroidism. 9. Chronic kidney disease. Baseline creatinine about 1.5. 10. Acute kidney injury, now resolved. 11. Chronic vertigo. 12. Recurrent urinary tract infections. HOSPITAL COURSE: Please see Admission History and Physical by Dr. Jasmyne Ny. The patient presen eric with encephalopathy. She was moderately clinically dry with a presenting creatinine of 2.0 that improved with hydration. There was concern for recurrent infection. She had unremarkable urinalysis , she had negative blood cultures. She was afebrile. She had negative respiratory panel. Her chest x-ray showed clearance of her infiltrate. She did not have an oxygen requirement. She had a tox sc reen which showed fairly high levels of benzodiazepines and opiates. It is felt that these plus perh aps some volume depletion were contributing to her current presentation. She was seen by Physical an d Occupational Therapy who felt that the patient needed no additional services. She is therefore dis charged home today. /[id number]/MODL
[2017-09-09] MEDS ORDERED: INSULIN LISPRO 100 UNIT/ML SC SCH (18:00)
[2017-09-10] MEDS ORDERED: Liraglutide [Victoza 3-Pak] 0.6 MG SQ SCH (09:00)
--- NOTE | 2017-09-10 09:56 | ASDISCHSUM ---
Discharge Information Plan Status:Home with No Needs Medically Cleared to Leave:09/08/2017 Discharge Date:09/09/2017 05:33 PM D/C Disposition: ADT D/C Disposition:Home, Routine, Self-Care Projected Discharge Date:09/09/2017 12:00 AM Transportation at D/C: Discharge Delay Reason: Follow-Up Date:09/09/2017 12:00 AM Discharge Slot: Final Diagnosis: Placement Information Patient Contact Information Contact Name:AMYCHEMA Relationship: Address:[address] [place] City:[place] Alternate Phone: [facility]/Zip Code:[place] [address] Email: Financial Information Financial Class:HMO and PPO Plans Primary Plan Desc:WENDY HERNANDEZ PPO Primary Plan Number:[id number] Secondary Plan Desc: Secondary Plan Number: Assessment Information Intervention Information
== END 2017-09-09 17:33 | disposition home or self-care (01) | DRG 92 ==
LOC: F3E 16:58
PROVIDERS: ADMIT Hospitalist; ATTEND Hospitalist
DX: G92 Toxic encephalopathy (principal); T42.4X5A Adverse effect of benzodiazepines, initial encounter; T40.2X5A Adverse effect of other opioids, initial encounter; N17.9 Acute kidney failure, unspecified; E86.0 Dehydration; G89.29 Other chronic pain; F11.20 Opioid dependence, uncomplicated; E78.5 Hyperlipidemia, unspecified; E11.65 Type 2 diabetes mellitus with hyperglycemia; F32.9 Major depressive disorder, single episode, unspecified; E03.9 Hypothyroidism, unspecified; N18.9 Chronic kidney disease, unspecified; Z87.01 Personal history of pneumonia (recurrent); H81.393 Other peripheral vertigo, bilateral; Z87.891 Personal history of nicotine dependence
CPT/HCPCS: 80307; 82947-QW; 97161-GP; 97165-GO; G0480; J0696; J1815